=== PATIENT | female | born 1940 | race Caucasian/White ===

== ENCOUNTER → 2021-12-25 | Emergency (ER) | payer OTHER ==
[~2021-12-25] VITALS: Ht 152.4 cm; Wt 97.1 kg
[2021-12-25 16:23] LABS: HEMATOCRIT 30.1 % (37.0-47.0); HEMOGLOBIN 9.5 gm/dL (12.0-15.0); MCHC 31.5 g/dL (28.0-37.0); MCV 88.9 fL (80.0-100.0); PLATELET COUNT 448 thou/uL (150-400); RBC 3.39 mil/uL (4.20-5.00); RDW 17.3 % (10.5-14.5)
[2021-12-25 16:33] LABS: CALCIUM 9.8 mg/dL (8.5-10.1); CREATININE 0.6 mg/dL (0.6-1.0); POTASSIUM 4.8 mmol/L (3.5-5.1)
[2021-12-25 16:35] LABS: URINE BILIRUBIN NEGATIVE (Negative); URINE BLOOD TRACE (Negative); URINE CLARITY CLEAR; URINE COLOR YELLOW; URINE GLUCOSE-RANDOM* NEGATIVE (Negative); URINE KETONES NEGATIVE (Negative); URINE NITRITE-REFLEX NEGATIVE (Negative); URINE PROTEIN (DIPSTICK) NEGATIVE (Negative); URINE SPECIFIC GRAVITY <= 1.005 (1.005-1.035); URINE UROBILINOGEN 0.2 E.U./dl (0.2-1.0)
[2021-12-25 16:40] LABS: URINE LEUKOCYTES-REFLEX 2+ (Negative)
[2021-12-25 16:44] LABS: ALBUMIN 1.9 g/dL (3.4-5.0); TOTAL BILIRUBIN 0.2 mg/dL (0.2-1.0); TOTAL PROTEIN 5.9 g/dL (6.4-8.2)
[2021-12-25 16:53] LABS: BACTERIA-REFLEX 1-9 Few /HPF (None Seen); CASTS None Seen /LPF (None Seen); SQUAMOUS 0-3 Few /LPF (0-3); URINE RBC 1-2 Rare /HPF (NONE SEEN); URINE WBC-REFLEX 6-15 Few /HPF (0-5)
[2021-12-25 16:54] LABS: CRYSTALS None Seen /LPF (None Seen); YEAST-REFLEX Present (None Seen)
[2021-12-25 16:57] LABS: ABSOLUTE NEUTROPHILS 13.6 thou/uL (1.4-8.2)
[2021-12-25 22:27] VITALS: BP 109/35
--- NOTE | 2021-12-26 07:48 | EKG ---
[address] [address] [facility] [place] [address] ELECTROCARDIOGRAM REPORT Name: FLAVIA MONCADALENE Margarita Room #: REG 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 : 1940 Requested By: Jas Bourne Order Number: [id number] MD: Reagan Strong Measurements Intervals [place] Rate: 75 P: 9 KS: 147 QRS: 217 QRSD: 179 T: 99 QT: 460 QTc: 514 Interpretive Statements Atrial-sensed ventricular-paced rhythm No further analysis attempted due to paced rhythm No previous ECG available for comparison Electronically Signed On 12-26-2021 7:48:09 CLINICAL INFORMATICS PHYSICIAN by Reagan Strong [email or web address] <ELECTRONICALLY SIGNED> By: Reagan Strong MD, [facility] 12/26/21 0748 1555 1555 Reagan Strong MD, FAC /EPI
== END ==
LOC: ER 15:53
PROVIDERS: Emergency Medicine
DX: A41.9 Sepsis, unspecified organism (principal); L89.154 Pressure ulcer of sacral region, stage 4; L08.9 Local infection of the skin and subcutaneous tissue, unspecified; D72.828 Other elevated white blood cell count; Z88.5 Allergy status to narcotic agent; Z91.040 Latex allergy status; Z88.8 Allergy status to other drugs, medicaments and biological substances